=== PATIENT | female | born 1990 | race Caucasian/White ===

== ENCOUNTER 2021-01-15 09:51 | Inpatient (IN) | payer OTHER ==
[~2021-01-15] VITALS: Ht 172.7 cm; Wt 82.6 kg
[~2021-01-15 09:51] MED LIST: AMIT10TA PO; CYCL10TA2 PO; GABA300C PO; HYDR-3237 PO; METH4TAB2 PO; MORP-52 PO; OXYC-380 PO; OXYC1TAB17 PO; SENN-177 PO
[2021-01-15] MEDS ORDERED: LACTATED RINGERS 1,000 ML IV SCH (10:30)
[2021-01-15] MEDS ORDERED: CHLORHEXIDINE 15 ML UDC MM ONE (10:30)
[2021-01-15 10:34] VITALS: BP 119/77
[2021-01-15 10:38] LABS: HCG UR SG 1.028 (1.003-1.030)
[2021-01-15] MEDS ORDERED: MIDAZOLAM 1 MG/ML, 2ML ONE (11:08)
[2021-01-15] MEDS ORDERED: FENTANYL PF 250 MCG/5ML ONE (11:08)
[2021-01-15] MEDS ORDERED: PROPOFOL 50 ML ONE ×2 (12:05→13:33)
[2021-01-15] MEDS ORDERED: KETAMINE 10 MG/ML, 20ML ONE (12:16)
[2021-01-15] MEDS ORDERED: BUPIVACAINE/PF-EPI 0.5% 1:200K INFIL ONE (12:37)
[2021-01-15] MEDS ORDERED: FENTANYL PF 100 MCG/2ML ONE ×4 (13:43→14:48)
[2021-01-15] MEDS: FENTANYL PF 100 MCG/2ML IV PRN ×4 (14:20→14:57)
[2021-01-15] MEDS ORDERED: MEPERIDINE/PF 25MG/ML,1ML ONE (14:24)
[2021-01-15] MEDS ORDERED: OXYcodone 5 MG/5 ML ORAL.SOL UDC PO PRN (14:30)
[2021-01-15] MEDS ORDERED: METHOCARBAMOL 1,000 MG in DEXTROSE 5% 100 ML IV ONE (14:30)
[2021-01-15] MEDS ORDERED: ACETAMINOPHEN 325 MG TABLET PO PRN (14:30)
[2021-01-15] MEDS ORDERED: LABETALOL 5MG/ML, 20ML IV PRN (14:30)
[2021-01-15] MEDS ORDERED: hydrALAzine 20 MG/ML, 1ML IV PRN (14:30)
[2021-01-15] MEDS ORDERED: EPHEDRINE 50 MG/ML, 1ML IVPush PRN (14:30)
[2021-01-15] MEDS ORDERED: MEPERIDINE/PF 25MG/0.5ML IVPush PRN (14:30)
[2021-01-15] MEDS ORDERED: LORazepam 2 MG/ML, 1ML IVPush PRN (14:30)
[2021-01-15] MEDS ORDERED: PROMETHAZINE 25 MG/ML, 1ML IVPush PRN (14:30)
[2021-01-15] MEDS ORDERED: ONDANSETRON 2MG/ML, 2ML IVPush PRN (14:30)
[2021-01-15] MEDS ORDERED: LORazepam 2 MG/ML, 1ML ONE (14:31)
[2021-01-15] MEDS ORDERED: ACETAMINOPHEN 650 MG/20.3 ML UDC ONE (14:41)
[2021-01-15] MEDS ORDERED: OXYcodone 5 MG/5 ML ORAL.SOL UDC ONE (14:41)
[2021-01-15] MEDS ORDERED: HYDROmorphone 1 MG/ML, 1ML INJ ONE (15:03)
[2021-01-15] MEDS: HYDROmorphone 1 MG/ML, 1ML INJ IVPush PRN ×3 (15:10→16:39)
[2021-01-15] MEDS ORDERED: DEXAMETHASONE 4 MG/ML, 1ML ONE (16:18)
[2021-01-15] MEDS ORDERED: ONDANSETRON 2MG/ML, 2ML ONE (16:18)
[2021-01-15] MEDS ORDERED: CEFAZOLIN 1,000 MG ONE (16:18)
[2021-01-15] MEDS ORDERED: METOCLOPRAMIDE 5 MG/ML, 2ML ONE (16:18)
[2021-01-15] MEDS ORDERED: PROPOFOL 10 MG/ML, 20ML ONE (16:18)
[2021-01-15] MEDS ORDERED: ROCURONIUM 10MG/ML,5ML ONE (16:18)
[2021-01-15] MEDS ORDERED: SUCCINYLCHOLINE 20 MG/ML, 10ML ONE (16:18)
[2021-01-15] MEDS ORDERED: ONDANSETRON 2MG/ML, 2ML IV PRN (18:00)
[2021-01-15] MEDS ORDERED: NS + 20MEQ KCL 1,000 ML IV SCH (18:00)
[2021-01-15] MEDS ORDERED: OXYcodone IR 5MG TABLET PO PRN (18:00)
[2021-01-15] MEDS ORDERED: CYCLOBENZAPRINE 10 MG TABLET PO PRN (18:00)
[2021-01-15] MEDS ORDERED: DIAZEPAM 5 MG/ML, 2ML IVPush PRN (18:00)
[2021-01-15] MEDS ORDERED: SENNA/DOCUSATE TABLET PO PRN (18:00)
[2021-01-15] MEDS ORDERED: DIPHENHYDRAMINE 50 MG/ML, 1ML IM PRN (18:00)
[2021-01-15] MEDS ORDERED: DIAZEPAM 5 MG TABLET PO PRN (18:00)
[2021-01-15] MEDS ORDERED: HYDROmorphone 2 MG/ML, 1ML IM PRN (18:00)
[2021-01-15] MEDS ORDERED: PROMETHAZINE 25 MG/ML, 1ML IM PRN (18:00)
[2021-01-15] MEDS ORDERED: DIPHENHYDRAMINE 50 MG/ML, 1ML IVPush PRN (18:00)
[2021-01-15] MEDS ORDERED: MAGNESIUM HYDROXIDE 8%, 30ML UDC PO PRN (18:00)
[2021-01-15] MEDS ORDERED: BISACODYL 10 MG SUPP PR PRN (18:00)
[2021-01-15 20:00] VITALS: BP 115/75
[2021-01-15] MEDS: SODIUM CHLORIDE FLUSH 3ML SYRINGE IVF SCH (21:00)
[2021-01-15] MEDS: CEFAZOLIN PMX 1GM/50ML 50 ML IVPB SCH (21:32)
[2021-01-15] MEDS ORDERED: METHOCARBAMOL 750 MG TABLET PO PRN (22:00)
[2021-01-16 00:07] VITALS: BP 100/63
[2021-01-16 03:53] VITALS: BP 109/70
[2021-01-16] MEDS: CEFAZOLIN PMX 1GM/50ML 50 ML IVPB SCH (05:21)
[2021-01-16 07:04] VITALS: BP 118/68
[2021-01-16] MEDS: SODIUM CHLORIDE FLUSH 3ML SYRINGE IVF SCH (08:29)
[2021-01-16] MEDS ORDERED: NS + 20MEQ KCL 1,000 ML IV SCH (18:00)
== END 2021-01-16 11:42 | disposition home or self-care (01) | DRG 30 ==
LOC: OUT 09:51 → 3N 17:59 → 4NE 20:04 → DCLOUNGE 01-16 11:33
PROVIDERS: ADMIT Neurological Surgery; ATTEND Neurological Surgery
PROC: 0SB20ZZ Excision of Lumbar Vertebral Disc, Open Approach (ICD-10-PCS; 2021-01-15)
PROC: 01NR0ZZ Release Sacral Nerve, Open Approach (ICD-10-PCS; 2021-01-15)
PROC: 01NB0ZZ Release Lumbar Nerve, Open Approach (ICD-10-PCS; principal; 2021-01-15 12:30)
DX: M54.18 Radiculopathy, sacral and sacrococcygeal region (principal); M54.16 Radiculopathy, lumbar region; M48.07 Spinal stenosis, lumbosacral region; Z88.0 Allergy status to penicillin
CPT/HCPCS: 72100; 81025; G0378; J0690; J1100; J1170; J2175; J2250; J2270; J2405; J2550; J2704; J3010; J3480; J0330; J2060; J2765; J2800; J7120